=== PATIENT | male | born 1965 | race Hispanic/Latino ===

== ENCOUNTER 2024-02-12 19:41 | Inpatient (IN) | payer BC ==
[~2024-02-12] VITALS: Ht 175.3 cm; Wt 108.4 kg
[2024-02-12 20:08] LABS: BASOPHILS # (AUTO) 0.1 (0.0-0.1); BASOPHILS % 0.5 % (0.0-1.0); EOSINOPHILS % 0.1 % (0.0-6.0); HEMATOCRIT 49.3 % (38.2-49.6); HEMOGLOBIN 15.8 g/dL (14.0-18.0); LYMPHOCYTES # (AUTO) 0.8 (1.0-3.2); LYMPHOCYTES % 4.1 % (18.0-39.1); MEAN CORPUSCULAR HEMOGLOBIN 28.3 pg (28-32); MEAN CORPUSCULAR VOLUME 88.4 fL (81-99); MONOCYTES # (AUTO) 1.7 (0.2-0.8); NEUTROPHILS # (AUTO) 16.1 (2.1-6.9); NEUTROPHILS % 85.8 % (38.7-80.0); PLATELET COUNT 268 x10e3/uL (140-360); RED BLOOD COUNT 5.58 x10e6/uL (4.3-5.7); RED CELL DISTRIBUTION WIDTH 14.8 % (11.7-14.4); WHITE BLOOD COUNT 18.84 x10e3/uL (4.8-10.8)
[2024-02-12] MEDS: ACETAMINOPHEN 325 MG TAB PO ONE (20:23)
[2024-02-12] MEDS: SODIUM CHLORIDE 0.9% 1000ML 1,000 ML IV ONE (20:23)
[2024-02-12 20:24] LABS: ALBUMIN 3.2 g/dL (3.5-5.0); ALBUMIN/GLOBULIN RATIO 0.7 (0.8-2.0); ANION GAP 26.6 mmol/L (8-16); BILIRUBIN,TOTAL 0.7 mg/dL (0.2-1.2); CALCIUM 9.7 mg/dL (8.4-10.2); CREATININE, SERUM 1.22 mg/dL (0.72-1.25); POTASSIUM 4.6 mmol/L (3.5-5.1)
[2024-02-12] MEDS: Vancomycin IV 1 GM in SODIUM CHLORIDE 0.9% 250ML 250 ML IV ONE (21:18)
[2024-02-12] MEDS ORDERED: DEXTROSE 50% SYRINGE 50 ML IV PRN (22:15)
[2024-02-12] MEDS ORDERED: ONDANSETRON HCL INJ 2MG/ML 2ML 2 MG/ML VIAL IV PRN (22:15)
[2024-02-12] MEDS: Vancomycin IV 1 GM in SODIUM CHLORIDE 0.9% 250ML 250 ML IV SCH (22:15)
[2024-02-12 23:01] VITALS: TEMP 99.3
[2024-02-12 23:30] VITALS: PULSE 101; RESP 22
[2024-02-13] VITALS (10 sets, daily range): BP systolic 128–149; BP diastolic 62–78; PULSE 93–106; RESP 17–21; TEMP 98.2–98.6; O2SAT 95–99
[2024-02-13] MEDS: SODIUM CHLORIDE 0.9% 1000ML 1,000 ML IV SCH (01:07)
[2024-02-13] MEDS ORDERED: HYDROCHLOROTH12.5 MG PO (01:19)
[2024-02-13] MEDS ORDERED: METFORMIN HCL500 M1 PO (01:19)
[2024-02-13] MEDS ORDERED: ROSUVASTATIN CA10 MG PO (01:19)
[2024-02-13] MEDS ORDERED: JARDIANCE25 MG PO (01:19)
[2024-02-13] MEDS ORDERED: LISINOPRIL20 MG PO (01:19)
[2024-02-13] MEDS ORDERED: AMLODIPINE BESYL5 MG PO (01:19)
[2024-02-13 06:12] LABS: BASOPHILS # (AUTO) 0.1 (0.0-0.1); BASOPHILS % 0.6 % (0.0-1.0); EOSINOPHILS # (AUTO) 0.1 (0.0-0.4); EOSINOPHILS % 0.4 % (0.0-6.0); HEMATOCRIT 41.1 % (38.2-49.6); HEMOGLOBIN 13.2 g/dL (14.0-18.0); LYMPHOCYTES # (AUTO) 1.3 (1.0-3.2); LYMPHOCYTES % 8.1 % (18.0-39.1); MEAN CORPUSCULAR HEMOGLOBIN 28.3 pg (28-32); MEAN CORPUSCULAR HGB CONC 32.1 g/dL (31-35); MONOCYTES # (AUTO) 1.7 (0.2-0.8); MONOCYTES % 10.2 % (4.4-11.3); NEUTROPHILS # (AUTO) 13.2 (2.1-6.9); PLATELET COUNT 225 x10e3/uL (140-360); RED BLOOD COUNT 4.67 x10e6/uL (4.3-5.7); RED CELL DISTRIBUTION WIDTH 14.7 % (11.7-14.4); WHITE BLOOD COUNT 16.48 x10e3/uL (4.8-10.8)
[2024-02-13 06:44] LABS: ALBUMIN 2.5 g/dL (3.5-5.0); ALBUMIN/GLOBULIN RATIO 0.7 (0.8-2.0); BILIRUBIN,TOTAL 0.6 mg/dL (0.2-1.2); CALCIUM 9.6 mg/dL (8.4-10.2); CREATININE, SERUM 0.9 mg/dL (0.72-1.25); TOTAL PROTEIN 6.1 g/dL (6.5-8.1)
[2024-02-13] MEDS: INSULIN REGULAR, HUMAN 100 UNIT/1 ML SQ SCH (07:30)
[2024-02-13] MEDS: CRESTOR 10MG PO SCH (21:06)
[2024-02-14] VITALS (7 sets, daily range): BP systolic 138–160; BP diastolic 61–78; PULSE 89–104; RESP 17–21; TEMP 97.4–99.3; O2SAT 96
[2024-02-14 05:30] LABS: BASOPHILS # (AUTO) 0.1 (0.0-0.1); BASOPHILS % 0.8 % (0.0-1.0); EOSINOPHILS # (AUTO) 0.4 (0.0-0.4); EOSINOPHILS % 2.7 % (0.0-6.0); HEMATOCRIT 43.2 % (38.2-49.6); HEMOGLOBIN 13.9 g/dL (14.0-18.0); LYMPHOCYTES # (AUTO) 1.4 (1.0-3.2); LYMPHOCYTES % 10.8 % (18.0-39.1); MEAN CORPUSCULAR HEMOGLOBIN 28.6 pg (28-32); MEAN CORPUSCULAR HGB CONC 32.2 g/dL (31-35); MEAN CORPUSCULAR VOLUME 88.9 fL (81-99); MONOCYTES # (AUTO) 1.2 (0.2-0.8); MONOCYTES % 9.6 % (4.4-11.3); NEUTROPHILS # (AUTO) 9.6 (2.1-6.9); NEUTROPHILS % 75.6 % (38.7-80.0); PLATELET COUNT 252 x10e3/uL (140-360); RED BLOOD COUNT 4.86 x10e6/uL (4.3-5.7); RED CELL DISTRIBUTION WIDTH 14.7 % (11.7-14.4); WHITE BLOOD COUNT 12.75 x10e3/uL (4.8-10.8)
[2024-02-14 06:00] LABS: CALCIUM 9.1 mg/dL (8.4-10.2); CREATININE, SERUM 0.67 mg/dL (0.72-1.25)
[2024-02-14] MEDS: AMLODIPINE BESYLATE 5 MG TAB PO SCH (09:48)
[2024-02-15] VITALS (7 sets, daily range): BP systolic 136–165; BP diastolic 74–84; PULSE 89–97; RESP 18–20; TEMP 97.7–99.7; O2SAT 95–98
[2024-02-15 05:17] LABS: BASOPHILS # (AUTO) 0.1 (0.0-0.1); BASOPHILS % 1.2 % (0.0-1.0); EOSINOPHILS # (AUTO) 0.5 (0.0-0.4); EOSINOPHILS % 4.4 % (0.0-6.0); HEMATOCRIT 44.7 % (38.2-49.6); HEMOGLOBIN 14.3 g/dL (14.0-18.0); LYMPHOCYTES # (AUTO) 2.2 (1.0-3.2); LYMPHOCYTES % 19.8 % (18.0-39.1); MEAN CORPUSCULAR HEMOGLOBIN 28.5 pg (28-32); MONOCYTES # (AUTO) 0.9 (0.2-0.8); MONOCYTES % 7.9 % (4.4-11.3); NEUTROPHILS # (AUTO) 7.2 (2.1-6.9); NEUTROPHILS % 65.3 % (38.7-80.0); PLATELET COUNT 251 x10e3/uL (140-360); RED BLOOD COUNT 5.02 x10e6/uL (4.3-5.7); RED CELL DISTRIBUTION WIDTH 14.8 % (11.7-14.4); WHITE BLOOD COUNT 10.98 x10e3/uL (4.8-10.8)
[2024-02-15 05:32] LABS: CALCIUM 8.8 mg/dL (8.4-10.2); CREATININE, SERUM 0.73 mg/dL (0.72-1.25)
[2024-02-15 05:35] LABS: VANCOMYCIN,TROUGH 11.9 ug/mL (5.0-10.0)
[2024-02-15 08:47] LABS: EOSINOPHILS % (MANUAL) 6 % (0-7); LYMPHOCYTES % (MANUAL) 17 % (19-48); MONOCYTES % (MANUAL) 10 % (3.4-9.0); NEUTROPHILS % (MANUAL) 65 % (40-74); REACTIVE LYMPHOCYTES 2
[2024-02-15 08:48] LABS: PLATELET ESTIMATE ADEQUATE; PLATELET MORPHOLOGY COMMENT NORMAL; RBC MORPHOLOGY COMMENT NORMAL
[2024-02-16] VITALS (7 sets, daily range): BP systolic 140–165; BP diastolic 68–86; PULSE 94–101; RESP 17–20; TEMP 97.7–99.5; O2SAT 94–100
[2024-02-16 05:23] LABS: BASOPHILS # (AUTO) 0.2 (0.0-0.1); BASOPHILS % 1.4 % (0.0-1.0); EOSINOPHILS # (AUTO) 0.6 (0.0-0.4); EOSINOPHILS % 5.1 % (0.0-6.0); HEMOGLOBIN 14.6 g/dL (14.0-18.0); LYMPHOCYTES # (AUTO) 2.6 (1.0-3.2); MEAN CORPUSCULAR HEMOGLOBIN 28.7 pg (28-32); MEAN CORPUSCULAR HGB CONC 32.4 g/dL (31-35); MEAN CORPUSCULAR VOLUME 88.4 fL (81-99); MONOCYTES # (AUTO) 0.9 (0.2-0.8); MONOCYTES % 7.2 % (4.4-11.3); NEUTROPHILS # (AUTO) 7.8 (2.1-6.9); NEUTROPHILS % 63.4 % (38.7-80.0); PLATELET COUNT 252 x10e3/uL (140-360); RED BLOOD COUNT 5.09 x10e6/uL (4.3-5.7); RED CELL DISTRIBUTION WIDTH 14.8 % (11.7-14.4); WHITE BLOOD COUNT 12.27 x10e3/uL (4.8-10.8)
[2024-02-16 05:43] LABS: ANION GAP 16.2 mmol/L (8-16); CALCIUM 9.1 mg/dL (8.4-10.2); CREATININE, SERUM 0.71 mg/dL (0.72-1.25); POTASSIUM 4.2 mmol/L (3.5-5.1)
[2024-02-16 07:30] LABS: BAND NEUTROPHILS % (MANUAL) 1 %; BASOPHILS % (MANUAL) 1 % (0-1.5); EOSINOPHILS % (MANUAL) 2 % (0-7); LYMPHOCYTES % (MANUAL) 17 % (19-48); MONOCYTES % (MANUAL) 11 % (3.4-9.0); NEUTROPHILS % (MANUAL) 68 % (40-74); PLATELET ESTIMATE ADEQUATE; PLATELET MORPHOLOGY COMMENT NORMAL; RBC MORPHOLOGY COMMENT NORMAL
[2024-02-16] MEDS: LISINOPRIL 20 MG TAB PO SCH (08:53)
[2024-02-17] VITALS (9 sets, daily range): BP systolic 138–155; BP diastolic 75–87; PULSE 69–104; RESP 16–20; TEMP 98–99.5; O2SAT 95–100
[2024-02-17] MEDS ORDERED: MUPIROCIN 2% OINT 22 GM TUBE TOP SCH (17:00)
[2024-02-18] VITALS (8 sets, daily range): BP systolic 120–152; BP diastolic 68–92; PULSE 86–99; RESP 18–20; TEMP 98–98.6; O2SAT 95–98
[2024-02-18] MEDS ORDERED: FENTANYL CITRATE/PF 100MCG/2 ML INJ ONE (09:53)
[2024-02-18] MEDS ORDERED: PROPOFOL IV EMULSION 10 MG/ML 20 ML VIAL ONE (10:41)
[2024-02-18] MEDS ORDERED: METOCLOPRAMIDE HCL 10 MG/2ML VIAL ONE (10:41)
[2024-02-18] MEDS ORDERED: ONDANSETRON HCL INJ 2MG/ML 2ML 2 MG/ML VIAL ONE (10:41)
[2024-02-18] MEDS ORDERED: SEVOFLURANE INHAL SOLN 250 ML PEN BTL ONE (10:41)
[2024-02-18] MEDS ORDERED: LIDOCAINE HCL 2% LOCAL INJ 5 ML SDV VIAL INJ ONE (10:41)
[2024-02-18] MEDS ORDERED: PHENYLEPHRINE HCL 1% 10 MG/ML VIAL ONE (10:41)
[2024-02-18] MEDS ORDERED: BUPIVACAINE HCL 0.5% INJ 30 ML VIAL INJ ONE (10:57)
[2024-02-18] MEDS ORDERED: SODIUM CHLORIDE 0.9% 100 ML ONE (11:48)
[2024-02-18] MEDS ORDERED: Vancomycin IV 1 GM VIAL ONE (12:09)
[2024-02-18] MEDS: PIPERACILLIN/TAZOBACTAM 3.375 GM VIAL ONE (15:20)
[2024-02-18] MEDS: SODIUM CHLORIDE 0.9% 100 ML ONE (15:20)
[2024-02-19] VITALS (8 sets, daily range): BP systolic 129–149; BP diastolic 67–94; PULSE 87–92; RESP 18; TEMP 98.2–98.7; O2SAT 92–97
[2024-02-19] MEDS ORDERED: ONDANSETRON HCL 4 MG ORAL DISINTEGRATING TAB PO PRN (11:00)
[2024-02-19] MEDS: ACETAMINOPHEN 325 MG TAB PO PRN (11:41)
[2024-02-20] VITALS (8 sets, daily range): BP systolic 128–158; BP diastolic 72–83; PULSE 81–123; RESP 18–20; TEMP 97.8–99.3; O2SAT 94–100
[2024-02-20] MEDS: MEROPENEM 1 GM in SODIUM CHLORIDE 0.9% 100 ML IV SCH (13:28)
[2024-02-21] VITALS (8 sets, daily range): BP systolic 123–142; BP diastolic 68–79; PULSE 82–98; RESP 18–19; TEMP 97.8–99.3; O2SAT 96–97
[2024-02-22] VITALS (8 sets, daily range): BP systolic 134–153; BP diastolic 69–88; PULSE 85–99; RESP 18–22; TEMP 98.1–99.1; O2SAT 95–99
[2024-02-22 05:01] LABS: BASOPHILS # (AUTO) 0.1 (0.0-0.1); BASOPHILS % 0.7 % (0.0-1.0); EOSINOPHILS # (AUTO) 0.7 (0.0-0.4); EOSINOPHILS % 6.8 % (0.0-6.0); HEMATOCRIT 43.7 % (38.2-49.6); HEMOGLOBIN 13.9 g/dL (14.0-18.0); LYMPHOCYTES # (AUTO) 2.6 (1.0-3.2); LYMPHOCYTES % 23.7 % (18.0-39.1); MEAN CORPUSCULAR HEMOGLOBIN 28.7 pg (28-32); MEAN CORPUSCULAR HGB CONC 31.8 g/dL (31-35); MEAN CORPUSCULAR VOLUME 90.1 fL (81-99); MONOCYTES # (AUTO) 0.5 (0.2-0.8); MONOCYTES % 4.7 % (4.4-11.3); NEUTROPHILS # (AUTO) 6.9 (2.1-6.9); NEUTROPHILS % 63.1 % (38.7-80.0); PLATELET COUNT 357 x10e3/uL (140-360); RED BLOOD COUNT 4.85 x10e6/uL (4.3-5.7); RED CELL DISTRIBUTION WIDTH 14.5 % (11.7-14.4); WHITE BLOOD COUNT 10.95 x10e3/uL (4.8-10.8)
[2024-02-22 05:26] LABS: ANION GAP 13.7 mmol/L (8-16); CALCIUM 8.6 mg/dL (8.4-10.2); CREATININE, SERUM 0.79 mg/dL (0.72-1.25); POTASSIUM 3.7 mmol/L (3.5-5.1)
[2024-02-23 01:04] VITALS: BP 126/80; PULSE 91; RESP 18; TEMP 97.7; O2SAT 98
[2024-02-23 05:17] VITALS: BP 136/68; PULSE 85; RESP 20; TEMP 97.3; O2SAT 99
[2024-02-23 07:17] VITALS: BP 131/71; PULSE 87; RESP 18; TEMP 98.4; O2SAT 98
[2024-02-23 09:00] VITALS: BP 131/71; PULSE 87; RESP 18; TEMP 98.4; O2SAT 98
[2024-02-23 11:01] VITALS: BP 131/77; PULSE 95; RESP 18; TEMP 98.6; O2SAT 95
[2024-02-23 14:44] VITALS: BP 125/66; PULSE 91; RESP 18; TEMP 98; O2SAT 95
[2024-02-23] MEDS ORDERED: MEROPENEM1 GM IV (17:47)
== END 2024-02-23 18:02 | disposition home health service (06) | DRG 617 ==
LOC: ER 19:50 → ERHOLD 22:11 → MED/SURG3 02-13 00:07
PROVIDERS: ADMIT Internal Medicine; ATTEND Internal Medicine
PROC: 0HCMXZZ Extirpation of Matter from Right Foot Skin, External Approach (ICD-10-PCS; 2024-02-12)
PROC: 02HV33Z Insertion of Infusion Device into Superior Vena Cava, Percutaneous Approach (ICD-10-PCS; 2024-02-14)
PROC: 0Y6X0Z0 Detachment at Right 5th Toe, Complete, Open Approach (ICD-10-PCS; 2024-02-18)
PROC: 0Y6V0Z0 Detachment at Right 4th Toe, Complete, Open Approach (ICD-10-PCS; principal; 2024-02-18 11:56)
DX: E11.621 Type 2 diabetes mellitus with foot ulcer (principal); L02.611 Cutaneous abscess of right foot; L03.115 Cellulitis of right lower limb; S91.341A Puncture wound with foreign body, right foot, initial encounter; I10 Essential (primary) hypertension; Z11.52 Encounter for screening for COVID-19; E11.649 Type 2 diabetes mellitus with hypoglycemia without coma; E11.42 Type 2 diabetes mellitus with diabetic polyneuropathy; L97.513 Non-pressure chronic ulcer of other part of right foot with necrosis of muscle; L03.031 Cellulitis of right toe; E78.49 Other hyperlipidemia; B96.89 Other specified bacterial agents as the cause of diseases classified elsewhere; Z79.84 Long term (current) use of oral hypoglycemic drugs; W26.8XXA Contact with other sharp object(s), not elsewhere classified, initial encounter
CPT/HCPCS: 36415; 36569; 71045; 80048; 80053; 80202; 82948; 83605; 85025; 86140; 87040; 87071; 87075; 87186; 87205; 88304; 88305; 88311; 93005; 93926; 96372; 99252; 99284; J2001; J2185; J2371; J2405; J2543; J2765; J7030; J7050; U0002

== ENCOUNTER 2024-03-20 18:07 | Emergency (ER) | payer BC ==
[~2024-03-20] VITALS: Ht 175.3 cm; Wt 108.4 kg
[~2024-03-20 18:07] MED LIST: AMLODIPINE BESYL5 MG PO; HYDROCHLOROTH12.5 MG PO; JARDIANCE25 MG PO; LISINOPRIL20 MG PO; MEROPENEM1 GM IV; METFORMIN HCL500 M1 PO; ROSUVASTATIN CA10 MG PO
[2024-03-20 18:10] VITALS: PULSE 102; RESP 16; TEMP 98.6; O2SAT 99
== END 2024-03-20 18:30 | disposition home or self-care (01) ==
LOC: ER 18:27
DX: Z45.2 Encounter for adjustment and management of vascular access device (principal); I10 Essential (primary) hypertension; E11.9 Type 2 diabetes mellitus without complications
CPT/HCPCS: 99282

== ENCOUNTER → 2024-04-18 | Day surgery (SDC) | payer BC ==
[2024-04-15 11:09] LABS: ANION GAP 15.6 mmol/L (8-16); CALCIUM 9.5 mg/dL (8.4-10.2); POTASSIUM 4.6 mmol/L (3.5-5.1)
[~2024-04-18] MED LIST changes: +BUPIVACAINE HCL 0.5% INJ 30 ML VIAL INJ ONE; +FENTANYL CITRATE/PF 100MCG/2 ML INJ ONE; +GLYCOPYRROLATE INJ 0.2 MG/ML VIAL ONE; +LIDOCAINE HCL 2% LOCAL INJ 5 ML SDV VIAL INJ ONE; +METOCLOPRAMIDE HCL 10 MG/2ML VIAL ONE; +MIDAZOLAM HCL 2 MG/2 ML VIAL ONE; +MOUNJARO5 MG/0.5 M; +ONDANSETRON HCL INJ 2MG/ML 2ML 2 MG/ML VIAL ONE; +PROPOFOL IV EMULSION 10 MG/ML 20 ML VIAL ONE; +SEVOFLURANE INHAL SOLN 250 ML PEN BTL ONE; +Vancomycin IV 1 GM VIAL ONE
[2024-04-18] MEDS: CEFAZOLIN SODIUM 2 GM ONE (05:54)
[2024-04-18] MEDS: LACTATED RINGER'S 1,000 ML ONE (05:54)
[2024-04-18 09:05] VITALS: TEMP 98.1
[2024-04-18 09:27] VITALS: BP 135/79; PULSE 85; RESP 18; O2SAT 99
== END | disposition home or self-care (01) ==
LOC: OR 05:26
PROVIDERS: ATTEND Podiatrist Foot & Ankle Surgery
DX: E11.69 Type 2 diabetes mellitus with other specified complication (principal); M86.171 Other acute osteomyelitis, right ankle and foot; M67.01 Short Achilles tendon (acquired), right ankle; E11.42 Type 2 diabetes mellitus with diabetic polyneuropathy; E11.621 Type 2 diabetes mellitus with foot ulcer; L97.514 Non-pressure chronic ulcer of other part of right foot with necrosis of bone; E11.628 Type 2 diabetes mellitus with other skin complications; L03.115 Cellulitis of right lower limb; M06.9 Rheumatoid arthritis, unspecified; I10 Essential (primary) hypertension; Z01.810 Encounter for preprocedural cardiovascular examination; Z01.812 Encounter for preprocedural laboratory examination; Z79.84 Long term (current) use of oral hypoglycemic drugs; Z79.85 Long-term (current) use of injectable non-insulin antidiabetic drugs; Z79.899 Other long term (current) drug therapy
CPT/HCPCS: 15275; 27685; 28805; 36415; 80048; 87071; 87075; 87205; 88305; 88311; 93005; J2001; J2250; J2405; J2704; J2765; J3010; J3370; J7121; Q4100; 88304